=== PATIENT | female | born 1965 | race Two or more races ===

== ENCOUNTER 2023-06-10 19:38 | Emergency (ER) | payer SELFPAY ==
[~2023-06-10] VITALS: Ht 165.1 cm; Wt 68.0 kg
[2023-06-10] MEDS ORDERED: ACETAMINOPHEN ES 500 MG TABLET PO ONE (20:00)
[2023-06-10] MEDS ORDERED: IBUPROFEN 600 MG TABLET PO ONE (20:00)
[2023-06-10] MEDS ORDERED: ACETAMINOPHEN ES 500 MG TABLET ONE (20:08)
[2023-06-10] MEDS ORDERED: IBUPROFEN 600 MG TABLET ONE (20:08)
[2023-06-10] MEDS ORDERED: TRAMADOL HCL 50 MG TABLET PO ONE (20:30)
[2023-06-10] MEDS ORDERED: TRAM50TA2 PO (20:49)
[2023-06-10 21:10] VITALS: BP 118/61; TEMP 98.4; O2SAT 98
== END 2023-06-10 21:10 | disposition home or self-care (01) ==
LOC: ER 19:40
DX: S63.591A Other specified sprain of right wrist, initial encounter (principal); S83.8X1A Sprain of other specified parts of right knee, initial encounter; Z79.899 Other long term (current) drug therapy; Z88.1 Allergy status to other antibiotic agents; W18.39XA Other fall on same level, initial encounter; Y93.89 Activity, other specified; Y92.89 Other specified places as the place of occurrence of the external cause; Y99.8 Other external cause status
CPT/HCPCS: 73110; 73130-TC; 73564-TC